=== PATIENT | male | born 1945 | race American Indian/Alaskan Native ===

== ENCOUNTER 2017-07-28 14:17 | Emergency (ER) | payer SELFPAY ==
[2017-07-28 14:46] VITALS: BP 118/90
[2017-07-28 15:18] LABS: Basophils % (Auto) 0.7 % (0.0-1.8); Hematocrit 44.8 % (35.5-45.6); Hemoglobin 14.8 gm/dl (11.8-15.2); Mean Corpuscular HGB Conc 33 % (32-34); Mean Corpuscular Hemoglobin 31 pg (28-32); Mean Corpuscular Volume 93 fl (84-94); Platelet Count 242 K/mm3 (140-440); Red Blood Count 4.84 M/mm3 (3.65-5.03); White Blood Count 3.8 K/mm3 (4.5-11.0)
[2017-07-28 15:31] LABS: Bacteria,Urine 1+ /HPF (Negative); Bilirubin,Urine NEG (Negative); Blood,Urine NEG (Negative); Ketones,Urine NEG (Negative); Leukocyte Esterase,Urine NEG (Negative); Nitrite,Urine NEG (Negative); Protein,Urine <15 mg/dL mg/dL (Negative); RBC,Urine < 1.0 /HPF (0.0-6.0); Urobilinogen,Urine < 2.0 mg/dL (<2.0); WBC,Urine < 1.0 /HPF (0.0-6.0)
[2017-07-28 15:35] LABS: Anion Gap 15 mmol/L; BUN/Creatinine Ratio 17.77; Blood Urea Nitrogen 16 mg/dL (9-20); Calcium 9.5 mg/dL (8.4-10.2); Carbon Dioxide 30 mmol/L (22-30); Chloride 93.8 mmol/L (98-107); Glucose 91 mg/dL (75-100); Potassium 4.2 mmol/L (3.6-5.0); Sodium 135 mmol/L (137-145)
--- NOTE | 2017-07-28 17:13 | Emergency Department Report ---
HPI - General Chief Complaint: Psych Time Seen by Provider: 07/28/17 16:46 - HPI HPI: [id number] The pt is a 71 y/o M p/w a cc of schizophrenia. The pt was reportedly sent from [facility] [place] 2/2 acute psychosis. The pt was reportedly upset. The pt is reported to be noncompliant c his meds. The pt has been nonverbal in the ED and does not provide a history or answer questions ED Past Medical Hx - Past Medical History Previous Medical History?: Yes Hx Psychiatric Treatment: Yes (cataonic Schizoprhenia) Hx COPD: Yes (atelectasis) - Surgical History Additional Surgical History: not provided - Family History Family history: no significant - Social History Smoking Status: Unknown if ever smoked ED Review of Systems ROS: Stated complaint: PSYCHOSIS SCHIZOPHRENIA Other details as noted in HPI Comment: Unobtainable due to pts medical conditions Physical Exam - Physical Exam Vital Signs: Vital Signs 07/28/17 14:31 Temperature 98.4 F Pulse Rate 76 Respiratory 18 Rate Blood Pressure 118/90 O2 Sat by Pulse 97 Oximetry Physical Exam: GEN: WD, WN M lying on stretcher not appearing to be in acute distress. HEENT: normocephalic, atraumatic PULM: CTA B CV: rrr, no m/r/g ABD: s, nt, nd Neuro: pt awake and alert making eye contact but does not speak. moves BUE well Ext: no deformity ED Course Vital Signs 07/28/17 14:31 Temperature 98.4 F Pulse Rate 76 Respiratory 18 Rate Blood Pressure 118/90 O2 Sat by Pulse 97 Oximetry ED Medical Decision Making - Lab Data Result diagrams: 07/28/17 14:56 07/28/17 14:56 Laboratory Tests 07/28/17 07/28/17 07/28/17 14:43 14:56 14:56 WBC RBC Hgb Hct MCV MCH MCHC RDW Plt Count Lymph % (Auto) [place] % (Auto) Eos % (Auto) Baso % (Auto) Lymph # [place] # Eos # Baso # Seg Neutrophils % Seg Neutrophils # Sodium 135 L Potassium 4.2 Chloride 93.8 L Carbon Dioxide 30 Anion Gap 15 BUN 16 Creatinine 0.9 Estimated GFR > 60 BUN/Creatinine Ratio 17.77 Glucose 91 Calcium 9.5 Urine Color Yellow Urine Turbidity Clear Urine pH 6.0 Ur Specific [place] 1.006 Urine Protein <15 mg/dl Urine Glucose (UA) Neg Urine Ketones Neg Urine Blood Neg Urine Nitrite Neg Urine Bilirubin Neg Urine Urobilinogen < 2.0 Ur Leukocyte Esterase Neg Urine WBC (Auto) < 1.0 Urine RBC (Auto) < 1.0 U Epithel Cells (Auto) < 1.0 Urine Bacteria (Auto) 1+ Plasma/Serum Alcohol < 0.01 07/28/17 14:56 WBC 3.8 L RBC 4.84 Hgb 14.8 Hct 44.8 MCV 93 MCH 31 MCHC 33 RDW 15.0 Plt Count 242 Lymph % (Auto) 36.4 H [place] % (Auto) 9.0 H Eos % (Auto) 1.0 Baso % (Auto) 0.7 Lymph # 1.4 [place] # 0.3 Eos # 0.0 Baso # 0.0 Seg Neutrophils % 52.9 Seg Neutrophils # 2.0 Sodium Potassium Chloride Carbon Dioxide Anion Gap BUN Creatinine Estimated GFR BUN/Creatinine Ratio Glucose Calcium Urine Color Urine Turbidity Urine pH Ur Specific [place] Urine Protein Urine Glucose (UA) Urine Ketones Urine Blood Urine Nitrite Urine Bilirubin Urine Urobilinogen Ur Leukocyte Esterase Urine WBC (Auto) Urine RBC (Auto) U Epithel Cells (Auto) Urine Bacteria (Auto) Plasma/Serum Alcohol - Differential Diagnosis psychosis Critical care attestation.: If time is entered above; I have spent that time in minutes in the direct care of this critically ill patient, excluding procedure time. ED Disposition Clinical Impression: Psychosis, Medical clearance for psychiatric admission Disposition: [id number]/TX-[id number] PSY HOSP/PSY UNIT Is pt being admited?: No Does the pt Need Aspirin: No Condition: Fair Referrals: PRIMARY CAREMD [Primary Care Provider] - 3-5 Days Time of Disposition: 17:43 (awaiting transport)
== END 2017-07-28 23:05 ==
LOC: ED 14:17
DX: F20.9 Schizophrenia, unspecified (principal); J44.9 Chronic obstructive pulmonary disease, unspecified
CPT/HCPCS: 36415; 80048; 81001; 85025; 99285; G0480; 80320

== ENCOUNTER 2017-07-30 10:45 | Emergency (ER) | payer MEDICARE, OTHER ==
[2017-07-30] MEDS ORDERED: NACL 0.9% 1000 ML 1,000 ML IV ONE (11:40)
[2017-07-30 12:27] LABS: Basophils % (Auto) 0.8 % (0.0-1.8); Eosinophils % (Auto) 1.6 % (0.0-4.3); Hematocrit 45.2 % (35.5-45.6); Hemoglobin 14.8 gm/dl (11.8-15.2); Mean Corpuscular HGB Conc 33 % (32-34); Mean Corpuscular Hemoglobin 31 pg (28-32); Mean Corpuscular Volume 94 fl (84-94); Red Blood Count 4.79 M/mm3 (3.65-5.03); Red Cell Distribution Width 14.9 % (13.2-15.2); White Blood Count 5.4 K/mm3 (4.5-11.0)
[2017-07-30 12:45] LABS: Alanine Aminotransferase 11 units/L (7-56); Albumin 3.7 g/dL (3.9-5); Albumin/Globulin Ratio 1.2 %; Alkaline Phosphatase 112 units/L (35-129); Anion Gap 16 mmol/L; BUN/Creatinine Ratio 21.25; Blood Urea Nitrogen 17 mg/dL (9-20); Carbon Dioxide 26 mmol/L (22-30); Chloride 102.5 mmol/L (98-107); Glucose 77 mg/dL (75-100); Potassium 4.5 mmol/L (3.6-5.0); Sodium 140 mmol/L (137-145); Total Protein 6.8 g/dL (6.3-8.2)
--- NOTE | 2017-07-30 12:49 | Cat Scan Report ---
CT HEAD WITHOUT CONTRAST: 07/30/17 10:45:00 CLINICAL: Altered mental status. TECHNIQUE: 2.5-mm noncontrast scans. COMPARISON:None FINDINGS: The ventricles and sulci are mildly enlarged for age. No abnormal density. No mass or mass effect. No hemorrhage, edema or extra-axial collection. The sinuses are clear. Normal orbits and soft tissues. The calvarium and skull base are intact. IMPRESSION: Global cortical atrophy and no acute change.
[2017-07-30 13:00] LABS: Platelet Count 198 K/mm3 (140-440)
--- NOTE | 2017-07-30 13:14 | XRay Report ---
AP CHEST :07/30/17 10:45:00 CLINICAL: Altered mental status. Shortness of breath. COMPARISON:None. FINDINGS: Normal heart and pulmonary vasculature. The lungs are hyperexpanded and hyperlucent. No airspace disease or pleural effusion. The bones and soft tissues are normal. IMPRESSION: COPD. No CHF or pneumonia.
[2017-07-30 15:32] LABS: Urine Drugs of Abuse Note Disclamer
[2017-07-30 16:05] LABS: Bilirubin,Urine NEG (Negative); Blood,Urine NEG (Negative); Ketones,Urine NEG (Negative); Leukocyte Esterase,Urine SM (Negative); Mucus,Urine FEW /HPF; Nitrite,Urine NEG (Negative); Protein,Urine <15 mg/dL mg/dL (Negative)
--- NOTE | 2017-07-30 16:40 | Emergency Department Report ---
HPI - General Chief Complaint: Altered Mental Status Time Seen by Provider: 07/30/17 11:40 - HPI HPI: This is a 71-year-old -[place] male from the [facility] patient is admitted there for schizophrenia exacerbation. Around 8:00 patient was anxious, agitated he received Haldol 2 mg IM with 0.5 mg Ativan IM, about 30 minutes after injections patient became lethargic,, was not responding to verbal stimuli, so patient was sent to ED for further evaluation. In the ER patient had a blood pressure of 91/62, sleepy but arousable, responding since to painful stimuli only. ED Past Medical Hx - Past Medical History Previous Medical History?: Yes Hx Psychiatric Treatment: Yes (cataonic Schizoprhenia) Hx COPD: Yes (atelectasis) - Surgical History Additional Surgical History: not provided - Social History Smoking Status: Unknown if ever smoked - Medications Home Medications: Home Medications Medication Instructions Recorded Confirmed Last Taken Type fluPHENAZine DECANOATE [Prolixin 37.5 mg IM Q2W 07/30/17 07/30/17 07/24/17 History Decanoate] 37.5mg ED Review of Systems ROS: Stated complaint: UNCON X 30 MIN Other details as noted in HPI Comment: All other systems reviewed and negative Musculoskeletal: as per HPI Psychiatric: auditory hallucinations, visual hallucinations Physical Exam - Physical Exam Vital Signs: Vital Signs 07/30/17 07/30/17 07/30/17 10:50 11:00 12:30 Temperature 98.3 F 97.8 F Pulse Rate 78 64 Respiratory 16 16 16 Rate Blood Pressure 91/62 Blood Pressure 103/79 [Left] O2 Sat by Pulse 100 100 94 Oximetry 07/30/17 13:20 Temperature Pulse Rate 74 Respiratory 16 Rate Blood Pressure Blood Pressure 108/72 [Left] O2 Sat by Pulse 98 Oximetry Physical Exam: Physical Exam: - General Limitations: No Limitations General appearance: Sleepy but arousable - Head Head exam: Present: atraumatic, normocephalic - Eye Eye exam: Present: normal appearance - ENT ENT exam: Present: mucous membranes moist - Neck Neck exam: Present: normal inspection - Respiratory Respiratory exam: Present: normal lung sounds bilaterally. Absent: respiratory distress - Cardiovascular Cardiovascular Exam: Present: normal rhythm. Absent: systolic murmur, diastolic murmur, rubs, gallop - GI/Abdominal GI/Abdominal exam: Present: soft, normal bowel sounds - Extremities Exam Extremities exam: Present: normal inspection - Back Exam Back exam: Present: normal inspection - Neurological Exam Neurological exam: Present: alert, oriented X3, - Skin Skin exam: Present: warm, dry, intact, normal color. Absent: rash ED Course Vital Signs 07/30/17 07/30/17 07/30/17 10:50 11:00 12:30 Temperature 98.3 F 97.8 F Pulse Rate 78 64 Respiratory 16 16 16 Rate Blood Pressure 91/62 Blood Pressure 103/79 [Left] O2 Sat by Pulse 100 100 94 Oximetry 07/30/17 13:20 Temperature Pulse Rate 74 Respiratory 16 Rate Blood Pressure Blood Pressure 108/72 [Left] O2 Sat by Pulse 98 Oximetry - Reevaluation(s) Reevaluation #1: 07/30/17 16:38 Patient's emergency department course was unremarkable, his symptoms were due to the medication administered at the psych facility, he was observed in the ER with oxygen and normal saline 1 L given, after 5 hours into his hospital stay he became more arousable became responsive to verbal stimuli and he remembered when he was given a shot and stated that he doesn't remember much after that. Patient was then observed for an extra hour airway was not compromised, his vitals were stable therefore he was discharged back to the psychiatric facility for further psychiatric care. He is medically cleared. ED Medical Decision Making - Lab Data Result diagrams: 07/30/17 12:02 07/30/17 12:02 Critical care attestation.: If time is entered above; I have spent that time in minutes in the direct care of this critically ill patient, excluding procedure time. ED Disposition Clinical Impression: Adverse drug effect Qualifiers: Encounter type: initial encounter Qualified Code(s): T88.7XXA - Unspecified adverse effect of drug or medicament, initial encounter Disposition: DC-01 TO HOME OR SELFCARE Is pt being admited?: No Does the pt Need Aspirin: No Condition: Stable Referrals: CHESTER HERRERA MD [Primary Care Provider] - 3-5 Days
[2017-07-30 19:03] VITALS: BP 120/88
== END 2017-07-30 23:37 | disposition home or self-care (01) ==
LOC: ED 10:45
DX: T88.7XXA Unspecified adverse effect of drug or medicament, initial encounter (principal); F20.9 Schizophrenia, unspecified; J44.9 Chronic obstructive pulmonary disease, unspecified
CPT/HCPCS: 36415; 70450; 71010; 80053; 80307; 81001; 82140; 82962; 83735; 84443; 85025; 93005; 93010; 96360; 99285; G0480; 80320